=== PATIENT | male | born 1995 ===

== ENCOUNTER 2016-11-28 21:59 | Emergency (ER) | payer OTHER ==
[2016-11-28 22:19] VITALS: BP 135/72; PULSE 89; RESP 16; TEMP 98.5; O2SAT 98
[2016-11-28] MEDS ORDERED: Povidone Iodine Topical 10% Sol ONE (22:57)
--- NOTE | 2016-11-28 22:57 | ED PDOC ---
HPI: General Adult Time Seen by Provider: 11/28/16 22:19 Chief Complaint (Nursing): Abnormal Skin Integrity History Per: Patient Additional Complaint(s): Pt. [place] the [place] when he stepped on an unknown object causing a laceration on his L great toe. Denies numbness, tingling, FB sensation. Past Medical History Reviewed: Historical Data, Nursing Documentation, Vital Signs Vital Signs: Last Vital Signs Temp 98.5 F 11/28/16 22:14 Pulse 89 11/28/16 22:14 Resp 16 11/28/16 22:14 BP 135/72 11/28/16 22:14 Pulse Ox 98 11/28/16 22:57 - Family History Family History: States: No Known Family Hx - Home Medications Home Medications: Ambulatory Orders Medication Instructions Recorded Ciprofloxacin [Cipro] 500 mg PO BID #20 tab 11/28/16 - Allergies Allergies/Adverse Reactions: Allergies Allergy/AdvReac Type Severity Reaction Status Date / Time amoxicillin Allergy SWELLING Verified 11/28/16 22:19 Review of Systems ROS Statement: Except As Marked, All Systems Reviewed And Found Negative Physical Exam - Physical Exam Appears: Positive for: Well, Non-toxic, No Acute Distress Skin: Positive for: Normal Color, Warm. Negative for: Rash Extremity: Positive for: Normal ROM, Other (L great toe on plantar surface with 1cm superficial C shaped flap laceration without active bleeding) Neurologic/Psych: Positive for: Alert, Oriented. Negative for: Aphasia, Facial Droop - ECG O2 Sat by Pulse Oximetry: 98 - Progress ED Course And Treament: Pt. evaluated by podiatry resident, López, who discussed case with Dr. Jay and repaired laceration in ED. Foot xray: no bony abnormality or FB noted Disposition - Clinical Impression Clinical Impression: Toe laceration - Patient ED Disposition Is Patient to be Admitted: No - Disposition Referrals: [facility] [Provider Group] Podiatry Clinic [Outside] Disposition: Routine/Home Disposition Time: 23:50 Condition: STABLE Additional Instructions: Follow up with Podiatry Clinic in 7 days for suture removal. Prescriptions: Ciprofloxacin [Cipro] 500 mg PO BID #20 tab Instructions: Care For Your Stitches (ED) Print Language: BELARUSIAN
[2016-11-28] MEDS ORDERED: TDAP Vaccine 0.5 mL Syr IM ONE (22:58)
--- NOTE | 2016-11-28 23:28 | CP.PCM.CON ---
History of Present Illness - History of Present Illness History of Present Illness: 20 y/o male with no PMHx seen at bedside in ED for laceration on his left plantar hallux. Pt states that he was [place] the beach when he had the injury. Pt states that he may have stepped on something while in the ocean but does not know what it may have been. Pt states that the injury occured around 4:30 pm. Pt denies of any treatment for the laceration prior to coming to the ED. Pt states that he wrapped the toe with bandages. Pt states that he has very little pain but he is managing it well. Pt denies of any recent F/N/V/C/SOB. Pt states that he has not had a tetanus shot recently. Pt denies of any other pedal complains at this time. PMHx: denies PSHx: denies SHx: occasional EtOH, denies of smoking or any illicit drug usage Allergies: Amoxicillin Review of Systems - Constitutional Constitutional: As Per [facility] Meds Home Medications: Home Medication List Medication Instructions Recorded Confirmed Type Ciprofloxacin [Cipro] 500 mg PO BID #20 tab 11/28/16 Rx Allergies/Adverse Reactions: Allergies Allergy/AdvReac Type Severity Reaction Status Date / Time amoxicillin Allergy SWELLING Verified 11/28/16 22:19 Physical Exam - Constitutional Appears: Well, Non-toxic, No Acute Distress - Extremities Exam Additional comments: VASC: DP/PT pulses are palpable 2/4 b/l, [employer]CE: < 3 sec to all digits, TG: warm to cool from proximal to distal, no pitting or non-pitting edema noted DERM: simple laceration with a depth of approx. 0.5-0.6 cm with straight clean edges with a U shape noted on the distal plantar aspect of the left hallux, no active bleeding or drainage, no surrounding erythema, no clinical suspicion of infection at this moment NEURO: protective sensation grossly intact ORTHO: pain on palpation of the lacerated site, normal ROM at the 1st ray and 1st MTPJ - Neurological Exam Neurological exam: Alert, Oriented x3 - Psychiatric Exam Psychiatric exam: Normal Affect, Normal Mood Results - Vital Signs Recent Vital Signs: Last Vital Signs Temp 98.5 F 11/28/16 22:14 Pulse 89 11/28/16 22:14 Resp 16 11/28/16 22:14 BP 135/72 11/28/16 22:14 Pulse Ox 98 11/28/16 22:57 Assessment & Plan - Assessment and Plan (Free Text) Assessment: 20 y/o male seen at bedside for simple laceration on distal aspect of the left hallux Plan: Pt evaluated and chart reviewed Pt discussed with attending Dr. Pierre King reviewed (afebrile) X-rays taken/reviewed: no evidence of foreign body noted Lidocaine 1% used to provide block and simple sutures placed using sterile technique Pt tolerated the procedure well Site dressed using betadine, adaptic, gauze, and cling Pt to follow up in podiatry clinic Pt educated to prevent from placing pressure on the left forefoot - pt given surgical shoe Pt demonstrated verbal understanding Thank you for podiatry consult - Date & Time Date: 11/29/16 Time: 00:56
[2016-11-28] MEDS ORDERED: Lidocaine 1% Inj (20ml) ONE (23:51)
--- NOTE | 2016-11-29 10:43 | RAD ---
PROCEDURE: Left Foot Radiographs. Three views of the left foot performed. Note that there appears to be gauze or bandages overlying the distal aspect left great toe which diminishes fine soft tissue and bone detail. . HISTORY: trauma COMPARISON: None. FINDINGS: BONES: No definitive radiographic evidence of acute displaced fracture nor dislocation. There appears to be a laceration along the distal -plantar surface of the left great toe. Clinical correlation recommended. No evidence of radiopaque foreign body seen. JOINTS: Minor hallux valgus deformity. SOFT TISSUES: Normal. OTHER FINDINGS: None. IMPRESSION: Apparent soft tissue laceration distal and plantar aspect left great toe. No radiopaque foreign bodies. No definitive evidence of acute displaced fracture nor dislocation. Clinical correlation recommended.
== END 2016-11-29 00:40 | disposition home or self-care (01) ==
LOC: H.ER 21:59
DX: S91.112A Laceration without foreign body of left great toe without damage to nail, initial encounter (principal)